=== PATIENT | male | born 1970 | race Caucasian/White ===

== ENCOUNTER 2018-05-30 17:05 | Emergency (ER) | payer OTHER ==
[~2018-05-30] VITALS: Ht 182.9 cm; Wt 93.3 kg
[2018-05-30] MEDS ORDERED: METOPROLOL 1 MG/ML, 5ML IVPush ONE (17:49)
[2018-05-30 17:51] LABS: BASOPHILS # (AUTO) 0.04 x10^3/uL (0-0.1); BASOPHILS % (AUTO) 0 % (0-1); EOSINOPHILS # (AUTO) 0.07 x10^3/uL (0-0.4); EOSINOPHILS % (AUTO) 1 % (1-7); LYMPHOCYTES # (AUTO) 1.27 x10^3/uL (1-3.4); LYMPHOCYTES % (AUTO) 15 % (22-44); MD NO; MEAN CORPUSCULAR HEMOGLOBIN 33.2 pg (27.5-34.5); MEAN CORPUSCULAR HGB CONC 33.9 g/dL (33.2-36.2); MEAN CORPUSCULAR VOLUME 97.7 fL (81-97); MEAN PLATELET VOLUME 9.1 fL (7.4-10.4); MONOCYTES # (AUTO) 0.57 x10^3/uL (0.2-0.8); MONOCYTES % (AUTO) 7 % (2-9); NEUTROPHILS # (AUTO) 6.84 x10^3/uL (1.8-6.8); NEUTROPHILS % (AUTO) 78 % (42-75); PLATELET COUNT 195 x10^3/uL (130-400); RED BLOOD COUNT 5.52 x10^6/uL (4.38-5.82); RED CELL DISTRIBUTION WIDTH 14.7 % (9.4-14.8)
[2018-05-30] MEDS ORDERED: METOPROLOL 1 MG/ML, 5ML ONE (17:51)
[2018-05-30 17:59] LABS: ALBUMIN 4.3 g/dL (3.4-5.0); ANION GAP 9 mmol/L (5-15); CALCIUM 9.1 mg/dL (8.5-10.1); CHLORIDE 104 mmol/L (98-107)
[2018-05-30] MEDS ORDERED: hydrALAzine 20 MG/ML, 1ML IV ONE (18:00)
[2018-05-30 18:02] LABS: ALANINE AMINOTRANSFERASE 89 U/L (12-78); ALKALINE PHOSPHATASE 72 U/L (45-117); BILIRUBIN,TOTAL 0.6 mg/dL (0.2-1.0); CREATININE 0.99 mg/dL (0.7-1.3); TOTAL PROTEIN 9.2 g/dL (6.4-8.2)
[2018-05-30 18:04] LABS: MICROSCOPIC AUTO
[2018-05-30 18:07] LABS: CULTURE INDICATED? YES
[2018-05-30] MEDS ORDERED: IBUP200T49 PO (18:20)
[2018-05-30] MEDS ORDERED: CYCL-259 PO (18:20)
[2018-05-30 18:25] LABS: TROPONIN I < 0.015 ng/mL (0.000-0.045)
[2018-05-30] MEDS ORDERED: LISINOPRIL 10 MG TABLET ONE (19:12)
[2018-05-30] MEDS ORDERED: LISINOPRIL 10 MG TABLET PO ONE (19:30)
[2018-05-30] MEDS ORDERED: OMNIPAQUE 350 MG/ML, 100ML BOTTLE ONE (19:45)
[2018-05-30 20:16] VITALS: BP 189/126
== END 2018-05-30 21:03 | disposition home or self-care (01) ==
LOC: ED 20:50
DX: R31.29 Other microscopic hematuria (principal); I10 Essential (primary) hypertension; R91.1 Solitary pulmonary nodule; R71.8 Other abnormality of red blood cells
CPT/HCPCS: 36415; 71045; 71275; 74174; 80053; 81001; 83880; 84484; 85025; 87086; 93005; 96374; 99285; Q9967